=== PATIENT | male | born 1960 | race Caucasian/White ===

== ENCOUNTER → 2025-09-21 | Day surgery (SDC) | payer MEDICARE, BC ==
[~2025-09-21] VITALS: Ht 170.2 cm; Wt 70.3 kg
[~2025-09-21] MED LIST: ASPI-1497 PO; BALANCED SALT IRRIG SOLN COMB1 500ML OP NR; CYCLOPENTOLATE HCL 1% OPHTH DROPS 2ML RIGHTEYE ONE; EMPA25TA PO; HYALURONATE SODIUM 10MG/ML 0.55ML SYRINGE IO ONE; LOSA100T33 PO; METF-414 PO; PHENYLEPHRINE HCL 10% OPHTH DROPS 5ML RIGHTEYE ONE; SIMV-46 PO; SODIUM CHLORIDE 0.9% 1,000 ML IV SCH; TROPICAMIDE 1% OPHTH DROPS 15ML RIGHTEYE ONE
== END | disposition home or self-care (01) ==
LOC: OR 08:11
PROVIDERS: ATTEND Ophthalmology
DX: E11.36 Type 2 diabetes mellitus with diabetic cataract (principal); H25.89 Other age-related cataract; I10 Essential (primary) hypertension; E78.5 Hyperlipidemia, unspecified; M19.90 Unspecified osteoarthritis, unspecified site; Z79.84 Long term (current) use of oral hypoglycemic drugs; Z79.899 Other long term (current) drug therapy; Z79.82 Long term (current) use of aspirin; Z98.890 Other specified postprocedural states
CPT/HCPCS: 66984; 82962; V2632; J3490; A4217